=== PATIENT | female | born 1945 | race Hispanic/Latino ===

== ENCOUNTER 2018-10-23 07:27 | Day surgery (SDC) | payer OTHER ==
[2018-10-16 09:06] VITALS: BMI 32.0
[~2018-10-23 07:27] MED LIST: EPINEPHrine 1:1000 Nasal Sol(30mL) ONE; Lidocaine/Epinephrine 1% 1:100000 10 ML IJ ONE; ceFAZolin IV 1 gm in Dextrose 1 GM/50 ML BAG IVPB ONE
[2018-10-23] MEDS ORDERED: Dextrose 5%/0.45% NS 1,000 ML IV SCH (08:15)
[2018-10-23] MEDS ORDERED: Midazolam 2 MG/2 ML VIAL ONE (08:36)
[2018-10-23] MEDS ORDERED: Propofol 10 mg/ml Inj (20 ML) ONE (08:36)
[2018-10-23] MEDS ORDERED: Acetaminophen-Codeine 300/30 mg Tab PO PRN (09:00)
[2018-10-23] MEDS ORDERED: HYDROmorphone 0.5 mg/0.5 ml ISec IVP PRN ×2 (09:43→10:05)
[2018-10-23] MEDS ORDERED: Neostigmine Methylsulfate 3mg/3ml Syringe IV ONE (09:47)
[2018-10-23] MEDS ORDERED: HYDROmorphone 0.5 mg/0.5 ml ISec ONE (10:23)
[2018-10-23] MEDS ORDERED: Albuterol 0.083% Inhal Sol (2.5 mg/3 mL) UD ONE (10:36)
[2018-10-23] MEDS ORDERED: Albuterol 0.083% Inhal Sol (2.5 mg/3 mL) UD INH ONE (12:00)
[2018-10-23 12:17] VITALS: BP 116/69; PULSE 83; RESP 18; TEMP 98; O2SAT 93
--- NOTE | 2018-10-23 20:44 | OP ---
PROCEDURE DATE: 10/23/2018 PREOPERATIVE DIAGNOSES: Deviated septum, large turbinates, and sinusitis. POSTOPERATIVE DIAGNOSES: Deviated septum, large turbinates, and sinusitis. PROCEDURES: Septoplasty, bilateral inferior turbinates reduction, endoscopic bilateral maxillary antrostomy, endoscopic bilateral ethmoidectomy. FINDINGS: Deviated septum, large turbinates, maxillary antrum stenosed on both sides, sinusitis changes noted on the ethmoid sinuses on both sides. DESCRIPTION OF PROCEDURE: The patient was brought into room, placed in supine position, and anesthesia was initiated through an ET tube. The patient was draped in usual manner. Adrenaline-soaked pledgets were inserted into the nasal cavity, remained there for 5 minutes and removed. The septum was injected with lidocaine with epinephrine on both sides. A Daniel incision was made on the left and mucoperichondrial flap was raised. A vertical incision was made in the cartilage leaving a 1.5 cm anterior and superior strut and mucoperichondrial flap was raised on the other side. Deviated portion of the cartilage and bone were removed using forceps and chisel. A quilting suture was used to suture the two flaps together and close the [place] incision. Zero-degree scope was inserted into the nasal cavity. The inferior turbinates were noted to be enlarged and reduced in size going from an inferior to superior, anterior posterior direction on both sides, first on the left and then on the right. Bleeding was controlled on both sides using suction cautery. Next, attention was turned to the left. It should be noted navigation was set up and used throughout the case in order to ensure the skull base and orbit were not entered. The middle turbinate was injected with lidocaine with epinephrine and medialized. The uncinate process was medialized using a [place] elevator and removed. The debrider was used to enter the ethmoid bulla inferomedially going posteriorly to the basal lamella, then anterior and superiorly until the ethmoid bulla was removed and the basal lamella was entered. Posterior ethmoid cells were entered and opened. Skull base was identified and followed anteriorly all the way to the area of the anterior ethmoid air cells. Next, a curved suction hooked up to navigation was used to locate the maxillary antrum which was noted to be stenosed and opened using forceps. Attention was turned to the right. The middle turbinate was injected with lidocaine with epinephrine and medialized. The uncinate process was medialized using a [place] elevator and removed using forceps. Debrider was used to enter the ethmoid bulla inferomedially going posteriorly to the basal lamella anterior and superiorly until the ethmoid bulla was removed. The basal lamella was entered and opened. The skull base was identified and the skull base was followed anteriorly all the way to the area of the anterior ethmoid air cells. The curved suction hooked up to navigation was used to locate the maxillary antrum which was noted to be stenosed and opened using forceps. Bleeding was controlled on both sides using adrenaline-soaked pledgets. Stents were placed. Splints were placed. The patient was taken off anesthesia and taken to recovery room in stable manner. Joe Galeana MD
== END 2018-10-23 12:20 | disposition home or self-care (01) ==
LOC: C.SDS 07:27
PROVIDERS: ATTEND Otolaryngology
DX: J34.2 Deviated nasal septum (principal); J34.3 Hypertrophy of nasal turbinates; J32.0 Chronic maxillary sinusitis; J32.2 Chronic ethmoidal sinusitis; J32.3 Chronic sphenoidal sinusitis
CPT/HCPCS: 30130; 30520; 31020; 31050; 82948; 88304; J0690; J1100; J1170; J2250; J2704; J2710; J3010